=== PATIENT | female | born 1980 | race Caucasian/White ===

== ENCOUNTER → 2023-08-28 13:35 | Outpatient (REF) | payer OTHER, SELFPAY | LOC: RAD 13:35 | PROVIDERS: ATTENDING PHYSICIAN Physician Assistant Medical | DX: M79.662 Pain in left lower leg (principal) | CPT/HCPCS: 93971 ==

== ENCOUNTER → 2023-09-06 13:58 | Outpatient (REF) | payer OTHER, SELFPAY | LOC: RAD 13:58 | PROVIDERS: ATTENDING PHYSICIAN Internal Medicine Hematology & Oncology; FAMILY PHYSICIAN Physician Assistant Medical | DX: M79.605 Pain in left leg (principal); R60.9 Edema, unspecified; I82.402 Acute embolism and thrombosis of unspecified deep veins of left lower extremity | CPT/HCPCS: 93971 ==

== ENCOUNTER → 2025-03-09 14:28 | Outpatient (REF) | payer BC, SELFPAY | LOC: HWRAD 14:28 | PROVIDERS: ATTENDING PHYSICIAN Obstetrics & Gynecology; FAMILY PHYSICIAN Physician Assistant Medical | DX: R10.2 Pelvic and perineal pain (principal) | CPT/HCPCS: 76830; 76856 ==